=== PATIENT | male | born 1970 | race Caucasian/White ===

== ENCOUNTER 2016-06-03 10:16 | Outpatient (CLI) | payer MEDICARE | END 2016-06-03 10:17 | disposition home or self-care (01) | DX: G47.33 Obstructive sleep apnea (adult) (pediatric) (principal) | CPT/HCPCS: 99214; G0463 ==

== ENCOUNTER 2017-06-04 22:05 | Outpatient (CLI) | payer MEDICARE ==
[2017-06-04 12:23] LABS: BASOPHILS # (AUTO) 0.1 10^3/uL (0.0-0.1); BASOPHILS % (AUTO) 0.9 %; EOSINOPHILS # (AUTO) 0.1 10^3/uL (0.0-0.7); EOSINOPHILS % (AUTO) 1.8 %; HGB - HEMOGLOBIN 14.7 g/dL (14.0-18.0); LYMPHOCYTES # (AUTO) 1.7 10^3/uL (1.5-3.5); LYMPHOCYTES % (AUTO) 29.5 %; MEAN CORPUSCULAR HEMOGLOBIN 30.2 pg (27.0-31.0); MEAN CORPUSCULAR HGB CONC 34.7 g/dL (32.0-36.0); MEAN CORPUSCULAR VOLUME 86.8 fL (80.0-94.0); MEAN PLATELET VOLUME 9.1 fL (7.4-11.4); MONOCYTES # (AUTO) 0.5 10^3/uL (0.0-1.0); MONOCYTES % (AUTO) 7.9 %; NEUTROPHILS # (AUTO) 3.5 10^3/uL (1.5-6.6); NEUTROPHILS % (AUTO) 59.9 %; PLT - PLATELET COUNT 160 10^3/uL (130-450); RED BLOOD COUNT 4.86 10^6/uL (4.70-6.10); RED CELL DISTRIBUTION WIDTH 13.8 % (12.0-15.0); WHITE BLOOD COUNT 5.9 x10^3/uL (4.8-10.8)
[2017-06-04 12:54] LABS: ALBUMIN 4.2 g/dL (3.2-5.5); ALBUMIN/GLOBULIN RATIO 1.6 (1.0-2.2); ALKALINE PHOSPHATASE 86 IU/L (42-121); ALT ALANINE AMINOTRANSFERASE 35 IU/L (10-60); AST ASPARTATE AMINOTRANSFERASE 23 IU/L (10-42); BILIRUBIN,TOTAL 0.6 mg/dL (0.2-1.0); BUN - BLOOD UREA NITROGEN 13 mg/dL (6-20); CALCIUM 8.9 mg/dL (8.5-10.3); CARBON DIOXIDE - CO2 29 mmol/L (21-32); CHLORIDE 105 mmol/L (101-111); CHOL/HDL RATIO 4.1 (<5.0); CHOLESTEROL 141 mg/dL; CREATININE 0.6 mg/dL (0.6-1.2); GFR - MDRD 146 (>89); GLUCOSE 88 mg/dL (70-100); HDL CHOLESTEROL 34 mg/dL; LDL CHOLESTEROL,CALCULATED 89 mg/dL; LDL/HDL RATIO 2.6 (<3.6); SODIUM 137 mmol/L (135-145); TOTAL PROTEIN 6.9 g/dL (6.7-8.2); VLDL CHOLESTEROL 18 mg/dL
== END 2017-06-04 22:06 | disposition home or self-care (01) ==
LOC: LAB.N 22:05
PROVIDERS: ATTEND Nurse Practitioner Gerontology
DX: Z79.899 Other long term (current) drug therapy (principal)
CPT/HCPCS: 36415; 80053; 80061; 84443; 85025

== ENCOUNTER 2017-06-24 12:54 | Outpatient (CLI) | payer MEDICARE ==
--- NOTE | 2017-06-25 16:38 | DEXA Report ---
DEXA: 06/24/2017 CLINICAL INDICATION: Osteopenia, history of Fosamax and Forteo use. TECHNIQUE: Dual energy x-ray absorptiometry (DXA) was performed on a [employer] system. Regions measured are the AP spine, femoral neck, and, if needed, forearm. COMPARISON: None. In accordance with the International Society for Clinical Densitometry (ISCD) guidelines, data from previous exams may be reanalyzed using current recommendations and techniques. This is done to allow a more accurate basis for comparison with the current study. FINDINGS The data for the lumbar spine is as follows: REGION BMD (g/cm/cm) T-SCORE Z-SCORE L1 1.019 -1.2 -1.8 L2 1.142 -0.8 -1.5 L3 1.102 -1.2 -1.8 L4 0.945 -2.5 -3.1 L1-L4 TOTAL 1.045 -1.5 -2.1 NOTE: All evaluable vertebrae are used for classification. The data for the hip is as follows: REGION BMD (g/cm/cm) T-SCORE Z-SCORE Neck 0.705 -2.8 -2.9 TOTAL 0.705 -2.7 -2.9 NOTE: The femoral neck or total proximal femur, whichever is lowest, is used for classification. IMPRESSION THE WHO CLASSIFICATION BASED ON THE INTERNATIONAL REFERENCE STANDARD IS OSTEOPOROSIS. THE FRACTURE RISK IS HIGH. RECOMMENDATION: Patients with diagnosis of osteoporosis or osteopenia should have regular bone mineral density assessment. For those eligible for Medicare, routine testing is allowed once every 2 years. Testing frequency can be increased for patients who have rapidly progressing disease or for those who are receiving medical therapy to restore bone mass. COMMENT: World Health Organization (WHO) definitions for osteoporosis and osteopenia: NORMAL BMD: T-score at 1.0 or higher, fracture risk is low. OSTEOPENIA BMD: T-score between 1.0 and -2.5, fracture risk is increased. OSTEOPOROSIS BMD: T-score at 2.5 or lower, fracture risk high. National Osteoporosis Foundation recommends: 1. Obtain adequate dietary calcium (at least 1200 mg per day) and vitamin D (400 -800 international units per day). 2. Participate, as appropriate, in regular weightbearing and muscle- strengthening exercise. 3. Avoid tobacco use and reduce alcohol and caffeine intake. 4. For more detailed information see the website at www.NOF.org. TD: 06/24/2017 21:47 RICKY
== END 2017-06-24 12:55 | disposition home or self-care (01) ==
LOC: DI 12:54
PROVIDERS: ATTEND Nurse Practitioner Gerontology
DX: M81.0 Age-related osteoporosis without current pathological fracture (principal)
CPT/HCPCS: 77080

== ENCOUNTER 2017-07-01 14:47 | Outpatient (CLI) | payer MEDICARE | END 2017-07-01 14:48 | disposition home or self-care (01) | LOC: SC 14:47 | PROVIDERS: ATTEND Nurse Practitioner Family | DX: G47.33 Obstructive sleep apnea (adult) (pediatric) (principal) | CPT/HCPCS: 99214; G0463; 99212 ==

== ENCOUNTER 2018-09-17 09:15 | Emergency (ER) | payer MEDICARE ==
--- NOTE | 2018-09-17 09:34 | ED Physician Documentation ---
PD HPI LOWER EXT INJURY - Stated complaint Stated Complaint: ANKLE INJURY - Chief complaint Chief Complaint: Trauma Ext - History obtained from History obtained from: Patient - History of Present Illness PD HPI LOW EXT INJURY LOCATION: Left, Ankle Type of injury: Fall Where injury occurred: Street Timing - onset: Today Worsened by: Moving, Palpating Associated symptoms: Swelling Similar symptoms before: Has not had sx before - Additional information Additional information: The patient is a 47-year-old male with a history of cerebral palsy and osteoporosis, who presents with left ankle pain. He fell this morning when his dog pulled suddenly on the leash. He has not been bearing weight on his left foot since the incident due to pain in the posterior aspect. He has noticed swelling in the Achilles region. He denies any other injuries from the fall. Review of Systems Constitutional: denies: Fever GI: denies: Nausea, Vomiting Skin: denies: Abrasion (s) Musculoskeletal: reports: Joint pain (left ankle). denies: Back pain Neurologic: denies: Focal weakness, Numbness, Headache, Head injury PD PAST MEDICAL HISTORY - Past Medical History Respiratory: Sleep apnea, CPAP use Neuro: Cerebral palsy Psych: ADD/ADHD, Obsessive compulsive disorder - Past Surgical History Ortho: Spine surgery - Present Medications Home Medications: Ambulatory Orders Medication Instructions Recorded Confirmed Alendronate Sodium 10 mg PO DAILY 09/17/18 09/17/18 Beta-Carotene(A)-C,E/Selenium 1 each PO DAILY 09/17/18 09/17/18 [Antioxidant Softgel] Calcium Citrate/Vitamin D3 1 each PO DAILY 09/17/18 09/17/18 [Calcium Cit 315-Vit D3 250 Cpt] Cholecalciferol [Vitamin D3] 5,000 unit PO DAILY 09/17/18 09/17/18 Fluoxetine HCl 40 mg PO DAILY 09/17/18 09/17/18 - Allergies Allergies/Adverse Reactions: Allergies Allergy/AdvReac Type Severity Reaction Status Date / Time No Known Drug Allergies Allergy Verified 09/17/18 09:24 PD ED PE NORMAL - Vitals Vital signs reviewed: Yes (Borderline systolic hypertension initially.) - General General: Alert and oriented X 3, Well developed/nourished, Other (Moderate muscle wasting, consistent with cerebral palsy.) - HEENT HEENT: Atraumatic - Neck Neck: No bony TTP - Respiratory Respiratory: No respiratory distress - Back Back: No spinal TTP - Derm Derm: No rash - Extremities Extremities: Other (There is swelling, slight ecchymosis, and tenderness to palpation over the distal Achilles tendon on the left. There is no bony te nderness to palpation. He has limited plantar flexion of the left foot, and compression of his gastrocnemius muscle results in no movement of the left foot. Distal neurovascular is intact.) - Neuro Neuro: Alert and oriented X 3, No motor deficit, No sensory deficit Results - Vitals Vitals: Vital Signs - 24 hr 09/17/18 09/17/18 09:21 12:13 Temperature 36.2 C L 36.3 C L Heart Rate 82 84 Respiratory 14 20 Rate Blood Pressure 137/82 H 130/86 H O2 Saturation 100 97 Oxygen O2 Source Room air - Rads (name of study) U/S left Achilles tendon Radiology: Prelim report reviewed, See rad report (A partial thickness tear of the mid left Achilles tendon of greater than 75% thickness is identified. The musculotendinous junction and insertion on the calcaneus are preserved.) Procedures - Splint (location) left ankle Splint applied by: Physician Type of splint: Fiberglass, Posterior, Stirrup Other: Patient tolerated well, No complications, Neurovascular intact, Crutches provided PD MEDICAL DECISION MAKING - ED course Complexity details: reviewed results, re-evaluated patient, considered differential, d/w patient, d/w family, d/w beverage sales consultant ED course: The patient's presentation is significant for a deep partial tear of the left Achilles tendon. The tear is greater than 75% thickness by ultrasound. Treatment in the emergency department included administration of posterior and stirrup splint with the foot in slight equinus. Crutches were attempted, but the patient was unable to perform crutch walking due to inadequate upper body strength. A prescription was written for a knee scooter. I discussed his condition with Dr. Ramachandran who is on-call for orthopedics. He will see the jen mayes in follow-up. Departure - Departure Disposition: 01 Home, Self Care Clinical Impression: Partial tear of left Achilles tendon Qualifiers: Encounter type: initial encounter Qualified Code(s): S86.012A - Strain of left Achilles tendon, initial encounter Condition: Stable Instructions: ED Tendon Rupture Achilles Follow-Up: Kashif Ramachandran MD [Provider Admit Priv/Credential] - Concha Mondragon ARNP [Credentialed Staff Provider] - Comments: Keep your left leg elevated as much the time as possible. You can apply ice pack to the Achilles area intermittently for the next 3 days. Do not bear weight on the splint. Use crutches or scooter when ambulating. Follow-up with orthopedics within 1 week. Call to schedule an appointment. Return to the emergency department if you develop increasing pain, or otherwise worsening symptoms. Discharge Date/Time: 09/17/18 12:17
--- NOTE | 2018-09-17 11:10 | Ultrasound Report ---
Reason: suspected left Achilles tendon rupture Procedure Date: 09/17/2018 Accession Number: [id number] / [id number] Procedure: US - Ext Limited Non Vascular CPT Code: FULL RESULT: EXAM: LEFT LOWER EXTREMITY ULTRASOUND - LIMITED EXAM DATE: 09/17/2018 10:56 AM. CLINICAL HISTORY: Suspected left Achilles tendon rupture. COMPARISON: None. TECHNIQUE: Real-time scanning was performed with static images obtained. FINDINGS: Focused musculoskeletal ultrasound examination of the left Achilles tendon is performed following a traumatic fall while walking the dog. A partial thickness tear of the mid left Achilles tendon of greater than 75% thickness is identified. The musculotendinous junction and insertion on the calcaneus are preserved. IMPRESSION: Deep partial tear of the mid left Achilles tendon. CRITICAL RESULT: The findings were discussed with Dr. Vega on 09/17/2018 at approximately 10:45 AM in person. CRISTAL
[2018-09-17 12:13] VITALS: BP 130/86
== END 2018-09-17 12:17 | disposition home or self-care (01) ==
LOC: ED 09:15
DX: S86.012A Strain of left Achilles tendon, initial encounter (principal); W18.30XA Fall on same level, unspecified, initial encounter; Y93.K1 Activity, walking an animal; Y92.410 Unspecified street and highway as the place of occurrence of the external cause; G80.9 Cerebral palsy, unspecified
CPT/HCPCS: 29505; 76882; 99283

== ENCOUNTER 2018-11-02 15:30 | Outpatient (CLI) | payer MEDICARE ==
[2018-11-02 16:09] LABS: ALBUMIN 4.3 g/dL (3.2-5.5); ALBUMIN/GLOBULIN RATIO 1.7 (1.0-2.2); BASOPHILS % (AUTO) 0.6 %; BILIRUBIN,TOTAL 0.7 mg/dL (0.2-1.0); CALCIUM 9.3 mg/dL (8.5-10.3); CREATININE 0.6 mg/dL (0.6-1.2); EOSINOPHILS # (AUTO) 0.3 10^3/uL (0.0-0.7); EOSINOPHILS % (AUTO) 3.8 %; HGB - HEMOGLOBIN 14.4 g/dL (14.0-18.0); LYMPHOCYTES # (AUTO) 1.8 10^3/uL (1.5-3.5); LYMPHOCYTES % (AUTO) 26.3 %; MEAN CORPUSCULAR HEMOGLOBIN 30.1 pg (27.0-31.0); MEAN CORPUSCULAR HGB CONC 34.1 g/dL (32.0-36.0); MEAN CORPUSCULAR VOLUME 88.3 fL (80.0-94.0); MEAN PLATELET VOLUME 9.2 fL (7.4-11.4); MONOCYTES # (AUTO) 0.5 10^3/uL (0.0-1.0); MONOCYTES % (AUTO) 6.7 %; NEUTROPHILS # (AUTO) 4.3 10^3/uL (1.5-6.6); NEUTROPHILS % (AUTO) 62.6 %; PLT - PLATELET COUNT 186 10^3/uL (130-450); RED CELL DISTRIBUTION WIDTH 14.3 % (12.0-15.0); TOTAL PROTEIN 6.9 g/dL (6.7-8.2); WHITE BLOOD COUNT 6.8 x10^3/uL (4.8-10.8)
== END 2018-11-02 15:31 | disposition home or self-care (01) ==
LOC: LAB 15:30
PROVIDERS: ATTEND Orthopaedic Surgery
DX: Z01.812 Encounter for preprocedural laboratory examination (principal); S92.002B Unspecified fracture of left calcaneus, initial encounter for open fracture
CPT/HCPCS: 80053; 85025

== ENCOUNTER 2018-11-03 08:08 | Day surgery (SDC) | payer MEDICARE ==
[2018-11-03] MEDS ORDERED: LACTATED RINGERS 1,000 ML IV ONE ×2 (08:13→10:56)
--- NOTE | 2018-11-03 08:35 | ANESTHESIA ---
Pre-Anesthesia VS, & Labs - Diagnosis L open calcaneal fx - Procedure L I&D open calcaneal fx Vital Signs: Temp Pulse Resp BP Pulse Ox 36.2 C L 81 12 118/85 H 95 11/03/18 08:13 11/03/18 08:13 11/03/18 08:13 11/03/18 08:13 11/03/18 08:13 Height 5 ft 9 in Weight (kg) 102 kg Body Mass Index 34.0 Home Medications and Allergies Home Medications: Ambulatory Orders Calcium Citrate 315 mg PO BID 11/02/18 Magnesium Malate 425 tab PO BID 11/02/18 Beccaria-3 Fatty Acids/Fish Oil [Beccaria-3 Fish Oil 1,000 mg Sfgl] 1 each PO DAILY 11/02/18 [place] 320 mg PO DAILY 11/02/18 Ubidecarenone [Co Q-10] 300 mg PO ONCE 11/02/18 Vitamin B Complex 1 each PO DAILY 11/02/18 Vitamin E (Dl,Tocopheryl Acet) [Vitamin E] 200 unit PO ONCE 11/02/18 Zinc Gluconate [Zinc] 15 mg PO DAILY 11/02/18 Alendronate Sodium 10 mg PO DAILY 09/17/18 Beta-Carotene(A)-C,E/Selenium [Antioxidant Softgel] 1 each PO DAILY 09/17/18 Cholecalciferol [Vitamin D3] 5,000 unit PO DAILY 09/17/18 Fluoxetine HCl 40 mg PO BID 09/17/18 Calcium Citrate 315 mg PO BID 11/02/18 Magnesium Malate 425 tab PO BID 11/02/18 Beccaria-3 Fatty Acids/Fish Oil [Beccaria-3 Fish Oil 1,000 mg Sfgl] 1 each PO DAILY 11/02/18 [place] 320 mg PO DAILY 11/02/18 Ubidecarenone [Co Q-10] 300 mg PO ONCE 11/02/18 Vitamin B Complex 1 each PO DAILY 11/02/18 Vitamin E (Dl,Tocopheryl Acet) [Vitamin E] 200 unit PO ONCE 11/02/18 Zinc Gluconate [Zinc] 15 mg PO DAILY 11/02/18 Allergies/Adverse Reactions: Allergies Allergy/AdvReac Type Severity Reaction Status Date / Time No Known Drug Allergies Allergy Verified 09/17/18 09:24 Anes History & Medical History - Anesthetic History Anesthesia Complications: reports: No previous complications Family history of Anesthesia Complications: Denies Family history of Malignant Hyperthermia: Denies - Medical History Cardiovascular: reports: Other Pulmonary: reports: Sleep apnea, CPAP use Neuro: reports: Cerebral palsy Musculoskeletal: reports: Osteoporosis Smoking Status: Never smoker - Surgical History Orthopedic: Spine surgery Exam General: Alert, Oriented x3, Cooperative Dental: WNL Mouth Openin Fingerbreadth Neck Mobility: Normal Mallampati classification: III Thyromental Distance: 4-6 cm Respiratory: Lungs clear, Normal breath sounds, No respiratory distress Cardiovascular: Regular rate Neurological: Normal speech Mental/Cognitive Status: Alert/Oriented X3, Normal for patient Cognitive Status: Within normal limits Plan Anesthesia Type: General Consent for Procedure(s) Verified and Reviewed: Yes Code Status: Attempt Resuscitation ASA classification: 2-Mild systemic disease Is this case an emergency?: No
[2018-11-03] MEDS ORDERED: BUPIVACAINE 0.25%-EPI 1:200000 PF 30 ML VIAL ONE (08:36)
[2018-11-03] MEDS ORDERED: CEFAZOLIN SODIUM IN 0.9 % NACL 2 GM/100 ML BAG IV ONE (09:08)
[2018-11-03] MEDS ORDERED: BUPIVACAINE 0.25%-EPI 1:200000 PF 30 ML VIAL SUBQ ONE ×2 (10:29)
[2018-11-03] MEDS ORDERED: LIDOCAINE-MPF 2% 5 ML VIAL IM ONE (10:30)
[2018-11-03] MEDS ORDERED: DEXAMETHASONE 4 MG/ML VIAL IVP ONE (10:30)
[2018-11-03] MEDS ORDERED: ROCURONIUM 50 MG/5 ML VIAL IVP ONE (10:30)
[2018-11-03] MEDS ORDERED: ACETAMINOPHEN 1,000 MG/100 ML 100 ML IV ONE (10:30)
[2018-11-03] MEDS ORDERED: fentaNYL 100 MCG/2 ML VIAL IVP ONE (10:30)
[2018-11-03] MEDS ORDERED: KETOROLAC 30 MG/ML VIAL IVP ONE (10:30)
[2018-11-03] MEDS ORDERED: PROPOFOL 200 MG/20 ML VIAL IVP ONE (10:30)
[2018-11-03] MEDS ORDERED: MIDAZOLAM 2 MG/2 ML VIAL IVP ONE (10:30)
[2018-11-03] MEDS ORDERED: ONDANSETRON 4 MG/2 ML VIAL IVP ONE (10:30)
--- NOTE | 2018-11-03 10:53 | OPERATIVE REPORT ---
Operative Report - General Procedure Date: 11/03/18 Planned Procedure: left Calcaneus irrigation and debridement. Possible ORIF Pre-Op Diagnosis: grade 1 open tongue-type calcaneal fracture Procedure Performed: incision, irrigation, debridement: skin, subcutaneous tissue, calcaneal bone. Post Op Diagnosis: same - Procedure Note Primary Surgeon: randee Anesthesia Provider: Abran Anesthesia Technique: General mask Pathology: cultures sent Estimated Blood Loss (mL): 30
[2018-11-03] MEDS ORDERED: HYDROcod/ACETAM 5/325 MG TABLET PO PRN (11:30)
[2018-11-03 11:57] VITALS: BP 114/77
--- NOTE | 2018-11-04 08:17 | OPERATIVE REPORT ---
DATE OF SERVICE: 11/03/2018 Physician: Steven Ward MD PREOPERATIVE DIAGNOSIS: Displaced chronic left tongue-type calcaneal fracture with grade 1 open ulceration and impending infection. POSTOPERATIVE DIAGNOSIS: Displaced chronic left tongue-type calcaneal fracture with grade 1 open ulceration and impending infection. PROCEDURE PERFORMED: Left hindfoot open surgery with debridement of calcaneal bone fragment and wound and irrigation, incision, debridement of skin, subcutaneous tissue and bone with ulcer decompression. SURGEON: Steven Ward MD ANESTHESIA: General, Nuria Osullivan CRNA. 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 He was seen on 09/17 in [facility] emergency room. Ultrasound was performed. He was given a diagnosis of Achilles tear and subsequent to this was treated for an Achilles tear. About 3 or 4 days ago he developed an ulcerative lesion on the back of his Achilles area in the skin and his parents with nursing background identified that there was a small spicule of bone protruding from this that they felt was naveen to a chicken bone. They called the clinic on 11/02/2018 and were immediately seen by me (their Ortho, Dr. Ramachandran being out of town) and x-rays confirmed that there had been a tongue-type fracture of the calcaneus and that it was impaled into the dorsal skin causing ulceration and skin breakdown without yousif evidence of cellulitis or infection as of 11/02. Based on these findings, the patient's situation was discussed with the family in detail and the complicated nature of the injury and a referral was attempted to foot and ankle subspecialists without success, but the case was discussed with Dr. Johnson in [place]. A surgery plan was made with the family for a debridement of the area and removal of the bone from the skin and debridement and further treatment as indicated at surgery, possible open reduction, possible simple debridement to varying degrees. The family understood the severe nature of this injury and its consequences. FINDINGS AT SURGERY: Patient, under anesthesia and in the lateral position, had his splint removed and immediately after splint removal, it was clear that he had an increasing amount of warmth in the leg and an increasing hue of pink skin color, extending over the posterior calf about two-thirds the way up towards the knee. The ulcer itself had about doubled in size from a few mm in width to about 6-10 mm in width small emaciated rim. There still was not yousif drainage from the wound, but there was incarcerated bone exposed. At open surgery, the patient's bone was incarcerated up into the skin. The bone was extremely soft as the patient's condition does cause osteopenic bone and it was contracted and scarred in with a high degree of scar tissue and immobilization. The area was debrided and after debridement and disimpaction of bone by removal of bone, it was felt that the residual piece of bone was of no value in any attempt at reconstruction because it was exceedingly soft with a finger being able to imprint and cause compression into the bone. For this reason, the bone fragment was removed and also with the understanding that the patient may have an impending infection, it was felt best to accept a debridement of bone and accepted tendon deficiency that would have potential to be possibly reconstructed at a later. This was a compromised position and an in-surgery completion of the decision making that began before surgery and discussed with the family. So once this fragment was removed, there was a further debridement that occurred of soft tissue and flushing irrigation through and through and out through the small puncture wound itself. DESCRIPTION OF PROCEDURE: Patient was taken to the operating room. He was given a general anesthetic. He was positioned in right lateral decubitus. A tourniquet was placed on his thigh. His left foot and ankle were sterilely prepped and draped in standard fashion. The patient's initial incision and drainage wound was about 2 inches in length, lateral to the posterior Achilles tendon. This was found almost immediately to be insufficient for exposure and did not allow disimpaction of the fragment, so further extension of the incision was made, essentially doubling its length. This allowed more appropriate exposure and the calcaneal fragment was then able to be extracted from the skin and subcutaneous pathway and debrided and inspected carefully and attempts made at trying to handle this bone found it to be unsuitable for repair, it being very fragile and osteopenic and would be susceptible to comminution and it was so contracted that it could not be rotated back down into position and further stripping of soft tissue seemed to not affect any change in this ability or inability to reduce it. Therefore, thus the fragment, which had become smaller after extraction from soft tissue and debridement was excised. The area was flushed thoroughly. At the conclusion, the tourniquet was deflated and a small amount of bleeding was controlled and a small wick drain was placed and closure was with a 1-layer closure of skin only utilizing 3-0 Prolene. The patient was placed in the slight equinus and a very bulky soft tissue dressing was applied. The patient was taken to recovery room in stable condition. ESTIMATED BLOOD LOSS: Less than 30 mL COMPLICATIONS: None. COUNTS: Sponge and needle counts correct. TD: 11/04/2018 07:57 RICKY
== END 2018-11-03 08:09 | disposition home or self-care (01) ==
LOC: SDS 08:08
PROVIDERS: ATTEND Orthopaedic Surgery
PROC: 0QBM0ZZ Excision of Left Tarsal, Open Approach (ICD-10-PCS; principal; 2018-11-03 09:15)
DX: M80.872A Other osteoporosis with current pathological fracture, left ankle and foot, initial encounter for fracture (principal); L89.622 Pressure ulcer of left heel, stage 2; G47.30 Sleep apnea, unspecified; Q93.82 Williams syndrome; H91.90 Unspecified hearing loss, unspecified ear
CPT/HCPCS: 11012; 87070; 87205; J0131; J0690; J7120; 80053; 85025